=== PATIENT | male | born 2000 | race African-American/Black ===

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

== ENCOUNTER 2021-03-04 23:01 | Emergency (ER) | payer OTHER ==
[2021-03-04 23:50] LABS: Bilirubin Negative (Negative); Blood, Urine Negative (Negative); Clarity Clear (Clear); Glucose, Urine (Dipstick) Negative (Negative); Ketone, Urine Negative (Negative); Leukocyte Negative (Negative); Nitrite Negative (Negative); Protein, Urine (Dipstick) Negative (Neg-Trace)
[2021-03-04 23:57] LABS: Specific Gravity, Urine 1.028 (1.002-1.036)
== END 2021-03-05 00:26 | disposition home or self-care (01) ==
LOC: NAV ERS 23:01
DX: R10.11 Right upper quadrant pain (principal)
CPT/HCPCS: 81003; 99283

== ENCOUNTER 2022-11-13 15:12 | Emergency (ER) | payer OTHER ==
[2022-11-13] MEDS ORDERED: HYDROcodone/Acetaminophen 5/325 mg Tablet ONE (16:34)
== END 2022-11-13 17:22 | disposition short-term general hospital (02) ==
LOC: NAV ERS 15:12
DX: M79.605 Pain in left leg (principal); V80.010A Animal-rider injured by fall from or being thrown from horse in noncollision accident, initial encounter

== ENCOUNTER 2023-02-09 08:08 | Emergency (ER) | payer OTHER | END 2023-02-09 09:10 | disposition home or self-care (01) | LOC: NAV ERS 08:08 | DX: S67.193A Crushing injury of left middle finger, initial encounter (principal); S61.213A Laceration without foreign body of left middle finger without damage to nail, initial encounter; W23.0XXA Caught, crushed, jammed, or pinched between moving objects, initial encounter ==

== ENCOUNTER 2023-03-27 07:07 | Emergency (ER) | payer OTHER, SELFPAY | END 2023-03-27 07:42 | disposition home or self-care (01) | LOC: NAV ERS 07:07 | DX: K52.9 Noninfective gastroenteritis and colitis, unspecified (principal) | CPT/HCPCS: 99283 ==

== ENCOUNTER 2025-07-20 21:35 | Emergency (ER) | payer OTHER ==
[2025-07-20] MEDS ORDERED: Ibuprofen 800 MG TAB ONE (21:52)
== END 2025-07-20 22:33 | disposition home or self-care (01) ==
LOC: NAV ERS 21:35
DX: S43.402A Unspecified sprain of left shoulder joint, initial encounter (principal); S60.222A Contusion of left hand, initial encounter; F17.290 Nicotine dependence, other tobacco product, uncomplicated; Y04.0XXA Assault by unarmed brawl or fight, initial encounter
CPT/HCPCS: 99283